=== PATIENT | male | born 1970 | race African-American/Black ===

== ENCOUNTER 2019-07-10 12:56 | Emergency (ER) | payer BC, OTHER ==
[~2019-07-10] VITALS: Ht 172.7 cm; Wt 80.0 kg
[2019-07-10 13:30] VITALS: BP 112/66
== END 2019-07-10 15:05 | disposition home or self-care (01) ==
LOC: ER 12:56
DX: Z76.0 Encounter for issue of repeat prescription (principal); J45.909 Unspecified asthma, uncomplicated
CPT/HCPCS: 99283